=== PATIENT | male | born 1960 | race Caucasian/White ===

== ENCOUNTER 2020-04-28 08:16 | Emergency (ER) | payer OTHER, SELFPAY ==
[~2020-04-28] VITALS: Ht 182.9 cm; Wt 99.8 kg
[2020-04-28 08:34] VITALS: Ht 182.9 cm; Wt 99.8 kg
[2020-04-28 09:39] LABS: BASOPHIL % 0.1 % (0.2-1.5); PLATELET COUNT 178 x10^3mcL (152-348); RED CELL DISTRIBUTION WIDTH 13.3 % (12.1-16.2)
[2020-04-28 10:01] LABS: CALCIUM 9.9 mg/dL (8.5-10.1); CARBON DIOXIDE 30.4 mmol/L (21-32); CHLORIDE SERUM 100 mmol/L (98-107); CREATININE SERUM 1.2 mg/dL (0.7-1.3); GFR1 > 60 mL/min; GLUCOSE SERUM 210 mg/dL (74-106); POTASSIUM SERUM 4.4 mmol/L (3.5-5.1); SODIUM SERUM 137 mmol/L (136-145)
[2020-04-28 10:13] LABS: ALKALINE PHOSPHATASE 119 U/L (46-116); ALT/SGPT 39 U/L (16-63); AST/SGOT 20 U/L (15-37); BILIRUBIN TOTAL 0.6 mg/dL (0.20-1.00); FREE T4 1.11 ng/dL (0.76-1.46); MAGNESIUM 1.7 mg/dL (1.8-2.4); TOTAL PROTEIN, SERUM 7.5 g/dL (6.4-8.2)
[2020-04-28 12:59] VITALS: BP 159/60
== END 2020-04-28 12:59 | disposition home or self-care (01) ==
LOC: ED 08:16
PROVIDERS: Student in an Organized Health Care Education/Training Program
DX: F41.9 Anxiety disorder, unspecified (principal); E83.42 Hypomagnesemia; F17.210 Nicotine dependence, cigarettes, uncomplicated; I10 Essential (primary) hypertension; E11.9 Type 2 diabetes mellitus without complications; Z20.828 Contact with and (suspected) exposure to other viral communicable diseases
CPT/HCPCS: 84439; J3475; U0003